=== PATIENT | female | born 1980 | race Caucasian/White ===

== ENCOUNTER → 2018-04-19 00:54 | Outpatient (CLI) | payer MEDICAID, SELFPAY ==
[2018-04-19 11:14] LABS: Hemoglobin A1C 5.8 % (4.5-6.2)
[2018-04-19 11:33] LABS: Iron 176 ug/dL (50-175)
[2018-04-19 12:13] LABS: ALT 41 U/L (12-78); AST 25 U/L (15-37); Albumin 3.9 g/dL (3.4-5.0); Alkaline Phosphatase 57 U/L (46-116); Anion Gap 9.7 mmol/L (3-11); BUN 15 mg/dL (7-18); CO2 25.3 mmol/L (21.0-32.0); CREATININE 0.86 mg/dL (0.55-1.02); Calcium 8.5 mg/dL (8.5-10.1); Chloride 105 mmol/L (98-107); Cholesterol 237 mg/dL (50-200); Glucose 89 mg/dL (70-100); HDL Cholesterol 37 mg/dL (40-60); Potassium 4.2 mmol/L (3.5-5.1); Sodium 140 mmol/L (136-145); TSH (W/Ref FT4) 1.55 uIU/mL (0.358-3.74); Total Protein 6.8 g/dL (6.4-8.2); Triglyceride 190 mg/dL (30-150); Vitamin B12 533 pg/mL (193-986)
[2018-04-19 12:33] LABS: Bilirubin, Total 0.4 mg/dL (0.2-1.0); LDL CHOLESTEROL 148 mg/dL (<100)
[2018-04-20 08:15] LABS: Ferritin 59 ng/mL (8-388)
[2018-04-20 08:26] LABS: Vitamin D 25 Total 27.9 ng/ml (30-100)
== END ==
PROVIDERS: PCP Family Medicine; Visit Provider Family Medicine
DX: E55.9 Vitamin D deficiency, unspecified (principal); R20.2 Paresthesia of skin; E83.19 Other disorders of iron metabolism; Z00.00 Encounter for general adult medical examination without abnormal findings
CPT/HCPCS: 36415; 80053; 80061; 82306; 83721; 82607; 82728; 83036; 83540; 84443

== ENCOUNTER 2019-03-30 01:07 | Outpatient (CLI) | payer MEDICAID, SELFPAY ==
--- NOTE | 2019-03-30 06:54 | DI.CT_ITS ---
SYMPTOM/DIAGNOSIS: ? HERNIA, ABD PAIN ABOVE AND TO THE LEFT OF UMBILICUS,R10.[address]: CT scan of the abdomen and pelvis was performed following intravenous and oral contrast administration. There are no priors for comparison. The lung bases are clear. The liver is normal in size. There is a 1 cm., round, hypodense lesion in the left lobe of the liver. There is a 1 cm. hypodense lesion seen in the posterior segment of the right lobe of the liver (series 6, images 267 and 357). The patient is status post cholecystectomy. No biliary ductal dilatation is present. The pancreas, spleen, adrenal glands, kidneys, ureters and bladder are unremarkable. The reproductive organs are unremarkable. The abdominal aorta is of normal caliber. No significant abdominal or pelvic adenopathy, ascites or pneumoperitoneum is present. The bowel shows no evidence of obstruction or inflammation. There is a normal appendix visualized. The lumbar spine shows mild degenerative change. 2 cm. above the umbilicus there are two small defects in the anterior abdominal wall in the midline. They contain fat. No evidence of bowel is seen. No soft tissue mass is appreciated. These are most suggestive of small supraumbilical fat containing hernias. No abdominal wall mass or abnormal enhancement is seen. IMPRESSION: Two small supraumbilical midline, fat containing abdominal wall hernias. Two 1 cm. hypodense lesions seen in the liver. These areas should be further evaluated. Abdominal ultrasound or pre and post contrast CT scan of the abdomen should be considered for further evaluation.
[2019-03-30] MEDS: Omnipaque 350 MG/ML 50 ML BTL IJ (07:20)
[2019-03-30] MEDS: Omnipaque 350 MG/ML 100 ML BTL IJ (08:44)
== END 2019-03-30 01:27 ==
PROVIDERS: PCP Family Medicine; Visit Provider Surgery
DX: K43.9 Ventral hernia without obstruction or gangrene; K76.89 Other specified diseases of liver; R10.33 Periumbilical pain; Z90.49 Acquired absence of other specified parts of digestive tract
CPT/HCPCS: 74177; J3490; Q9967

== ENCOUNTER 2019-04-05 00:37 | Outpatient (CLI) | payer MEDICAID, SELFPAY ==
--- NOTE | 2019-04-05 08:14 | DI.US_ITS ---
SYMPTOM/DIAGNOSIS: HYPODENSE LESION OF LIVER X 2, FOUND ON CT SCAN. ABD PAIN R10.9, R16.0 ABDOMINAL ULTRASOUND: The aorta and vena cava appear normal. The liver has a maximal diameter of 17.5 cm. In the left hepatic lobe there is a 1.2 x 1.1 x 0.9 cm region of increased echogenicity. In the right hepatic lobe there is a 1.5 x 1.3 x 1 cm region of increased echogenicity. These areas likely represent hemangiomata. Confirmation with multiphasic CT is suggested. The patient is status post cholecystectomy. There is no evidence of ductal dilatation. The pancreas is intact. The spleen has a maximal diameter of 9.9 cm. The left kidney is unremarkable measuring 11 cm. The right kidney is unremarkable measuring 12 cm. There is no evidence of free fluid in the abdomen. SUMMARY: Regions of increased echogenicity are noted in the liver which is somewhat enlarged and may represent hemangiomata. Further assessment with multiphasic CT is suggested.
== END 2019-04-05 00:57 ==
PROVIDERS: PCP Family Medicine; Visit Provider Physical Therapy Assistant
DX: R10.9 Unspecified abdominal pain (principal); R16.0 Hepatomegaly, not elsewhere classified; Z90.49 Acquired absence of other specified parts of digestive tract
CPT/HCPCS: 76700

== ENCOUNTER 2019-04-12 01:24 | Outpatient (CLI) | payer MEDICAID, SELFPAY ==
--- NOTE | 2019-04-12 08:26 | DI.CT_ITS ---
SYMPTOMS/DIAGNOSIS: LIVER MASS/CYST, ? HEMANGIOMA, R16.0 CT OF THE ABDOMEN: Comparison is made with [id number]. Pre contrast and post contrast images were performed during arterial, venous and at 5 minute delay. The previous ultrasound showed two hyperechoic liver lesions. The arterial phase images show peripheral enhancement. There is further lesion filling on the venous phase images. The lesions are not visible on the 5 minute delayed images. The enhancement pattern is consistent with hemangiomas. The patient is again noted to be status post cholecystectomy. There is no biliary dilatation. The pancreas, spleen, adrenals and kidneys as visualized portions of the bowel are unremarkable. IMPRESSION: Two small liver lesions, one in the left and the other in the inferior right lobe of the liver with ultrasound and CT findings consistent with hemangiomas.
[2019-04-12] MEDS: Omnipaque 350 MG/ML 100 ML BTL IV (09:55)
== END 2019-04-12 01:44 ==
PROVIDERS: PCP Family Medicine; Visit Provider Surgery
DX: R16.0 Hepatomegaly, not elsewhere classified (principal); R93.2 Abnormal findings on diagnostic imaging of liver and biliary tract; D18.03 Hemangioma of intra-abdominal structures
CPT/HCPCS: 74170; J3490

== ENCOUNTER 2019-05-07 01:53 | Outpatient (CLI) | payer MEDICAID, SELFPAY ==
[2019-05-07 12:08] LABS: HCT 41.4 % (36.0-46.0); HGB 13.6 g/dL (12.0-15.5); Mean Corp. HGB Concentration 32.9 g/dL (32.0-36.0); Mean Corpuscular Hemoglobin 30.8 pg (27.0-33.0); Mean Corpuscular Volume 93.7 fL (80-95); Mean Platelet Volume 10.5 fL (8.0-11.0); Platelet Count 347 x1000/uL (130-400); RBC 4.42 m/cumm (4.00-5.20); RBC Distribution Width 12.3 % (11.7-14.6); White Blood Cell Count 9.67 k/cumm (4.4-10.8)
[2019-05-07 12:27] LABS: Ferritin 58 ng/mL (8-388)
[2019-05-07 12:46] LABS: Iron 102 ug/dL (50-175)
[2019-05-07 15:49] LABS: Vitamin D 25 Total 29.8 ng/ml (30-100)
== END 2019-05-07 02:13 ==
PROVIDERS: PCP Family Medicine; Visit Provider Family Medicine
DX: E83.19 Other disorders of iron metabolism (principal); Z00.00 Encounter for general adult medical examination without abnormal findings; E55.9 Vitamin D deficiency, unspecified
CPT/HCPCS: 36415; 82306; 85027; 82728; 83540

== ENCOUNTER 2019-11-09 02:44 | Outpatient (CLI) | payer MEDICAID, SELFPAY ==
--- NOTE | 2019-11-09 | DI.RAD_ITS ---
EXAM: XR FOOT RT COMPLETE INDICATION: FOOT DEFORMITY, M21.969. COMPARISON: No exams were available for comparison TECHNIQUE: 2D digital imaging was performed. FINDINGS: The plantar arch is well maintained. An Ossicle is seen adjacent to the navicular. No significant d egenerative changes. IMPRESSION: Negative right foot. DATA REPOSITORY: RADIATION DOSE DELIVERED:
--- NOTE | 2019-11-09 | DI.RAD_ITS ---
EXAM: XR FOOT LT COMPLETE INDICATION: FOOT DEFORMITY, M21.969. COMPARISON: No exams were available for comparison TECHNIQUE: 2D digital imaging was performed. FINDINGS: The plantar arch is well maintained. There are 2 ossicles adjacent to the navicular. There are no s ignificant degenerative changes. IMPRESSION: Negative left foot. DATA REPOSITORY: RADIATION DOSE DELIVERED:
== END 2019-11-09 03:04 ==
PROVIDERS: PCP Family Medicine; Visit Provider Podiatrist Foot & Ankle Surgery
DX: Q79.8 Other congenital malformations of musculoskeletal system (principal)
CPT/HCPCS: 73630

== ENCOUNTER 2020-05-22 04:00 | Outpatient (CLI) | payer MEDICAID, SELFPAY ==
[2020-05-22 10:04] LABS: HGB 13.3 g/dL (11.2-15.7); MCH 31.4 pg (27.0-33.0); MCHC 34.1 % (32.0-36.0); Platelet Count 330 10^3/uL (130-400); RBC 4.24 10^6/uL (3.93-5.22); RDW 12.3 % (11.7-14.6); RDW-SD 41.5 fL; WBC 7.26 10^3/uL (4.4-10.8)
[2020-05-22 10:18] LABS: Hemoglobin A1C 5.3 % (<5.7)
[2020-05-22 10:43] LABS: Iron 93 ug/dL (50-170)
[2020-05-22 11:11] LABS: Ferritin 83 ng/mL (8-252); TSH (W/Ref FT4) 1.24 uIU/mL (0.36-3.74); Vitamin B12 512 pg/mL (193-986)
[2020-05-22 13:09] LABS: Vitamin D 25 Total 37.3 ng/ml (30-100)
== END 2020-05-22 04:20 ==
PROVIDERS: PCP Family Medicine; Visit Provider Family Medicine
DX: E83.19 Other disorders of iron metabolism (principal); E55.9 Vitamin D deficiency, unspecified; G47.30 Sleep apnea, unspecified; R53.83 Other fatigue; E11.9 Type 2 diabetes mellitus without complications
CPT/HCPCS: 36415; 82306; 85027; 82607; 82728; 83036; 83540; 84443

== ENCOUNTER 2021-05-21 10:50 | Outpatient (REF) | payer MEDICAID, SELFPAY ==
--- NOTE | 2021-05-21 09:30 | PAPFT_PTH ---
PATIENT: Neeru Parrish LOC: PATTI U#:[id number] AGE/SX: 41/F ROOM: RE05/21/[address]: Nani Marin MD, DC : 1980 BED: DIS: 05/21/2021 SPEC #: [id number] RECD: 05/21/21 13:13 STATUS: CHELO RELinda #: [id number] IVETH: 05/21/21 09:[address]: Nani Marin DEPT: [facility] Cytology RECD BY: Aretha Murray Tissues: 1 - CX/ENDOCX FOR PAP SMEARS Procedures: PAP THIN PREP/UVM Screening HPV DNA PROBE Comments: [id number]
== END 2021-05-21 10:51 | disposition home or self-care (01) ==
LOC: LBN 10:50
PROVIDERS: PCP Family Medicine; Visit Provider Family Medicine
DX: Z12.4 Encounter for screening for malignant neoplasm of cervix (principal); Z11.51 Encounter for screening for human papillomavirus (HPV); Z01.419 Encounter for gynecological examination (general) (routine) without abnormal findings
CPT/HCPCS: 88142; 87624

== ENCOUNTER 2021-08-26 02:31 | Outpatient (CLI) | payer MEDICAID, SELFPAY ==
[2021-08-26 08:27] LABS: ALT 36 U/L (14-59); AST 20 U/L (15-37); Albumin 3.9 g/dL (3.4-5.0); Alkaline Phosphatase 53 U/L (46-116); BUN 17 mg/dL (7-18); Bilirubin, Total 0.4 mg/dL (0.2-1.0); Calculated LDL 176 mg/dL (<100); Chloride 101 mmol/L (98-107); Cholesterol 276 mg/dL (<200); Glucose 99 mg/dL (74-106); HDL Cholesterol 34 mg/dL (40-60); Potassium 3.7 mmol/L (3.5-5.1); Sodium 139 mmol/L (136-145); Total Protein 7.2 g/dL (6.4-8.2); Triglyceride 330 mg/dL (<150)
== END 2021-08-26 02:32 | disposition home or self-care (01) ==
LOC: LBO 02:31
PROVIDERS: PCP Family Medicine; Visit Provider Family Medicine
DX: I10 Essential (primary) hypertension (principal)
CPT/HCPCS: 36415; 80053; 80061

== ENCOUNTER → 2022-04-30 00:30 | Outpatient (CLI) | payer MEDICAID, SELFPAY ==
--- NOTE | 2022-04-30 12:48 | DI.MAMMO_ITS ---
Exam(s) MAMMO SCREENING EXAM: MAMMO SCREENING CLINICAL HISTORY: screening,z12.39 TECHNIQUE: Mammograms were interpreted according to the usual protocol including computer analysis w [employer] CAD system, tomosynthesis and C-view imaging. COMPARISON: 2016 FINDINGS: The breasts are composed of scattered fibroglandular densities, Breast Density category B. No suspicious masses or suspicious microcalcifications are seen. No skin thickening or abnormal axillary lymph nodes are seen. There has been no significant change from prior exams. IMPRESSION: BI-RADS Category 1, Negative mammogram Yearly screening mammography is recommended. Breast Density - Category B, scattered fibroglandular densities. A negative radiographic report should not delay biopsy if a dominant or clinically suspicious mass is present. Up to ten percent of cancers are not identified on mammography. A negative report may reinforce clinical impression. Adenosis and dense breasts may obscure an underlying neoplasm. False positive reports average 6 to 10%. Patient will receive a letter notifying them of these results.
== END ==
PROVIDERS: PCP Family Medicine; Visit Provider Family Medicine
DX: Z12.31 Encounter for screening mammogram for malignant neoplasm of breast (principal)
CPT/HCPCS: 77063; 77067

== ENCOUNTER 2022-05-07 01:01 | Outpatient (CLI) | payer MEDICAID, SELFPAY ==
[2022-05-07 12:56] LABS: ALT 31 U/L (14-59); AST 27 U/L (15-37); Albumin 3.9 g/dL (3.4-5.0); Alkaline Phosphatase 47 U/L (46-116); Anion Gap 10.4 mmol/L (3-11); BUN 18 mg/dL (7-18); Bilirubin, Total 0.3 mg/dL (0.2-1.0); CO2 26.6 mmol/L (21.0-32.0); Calcium 9.1 mg/dL (8.5-10.1); Chloride 103 mmol/L (98-107); Glucose 99 mg/dL (74-106); Potassium 4.4 mmol/L (3.5-5.1); Sodium 140 mmol/L (136-145); Total Protein 7.5 g/dL (6.4-8.2)
== END 2022-05-07 01:02 | disposition home or self-care (01) ==
LOC: LOS 01:01
PROVIDERS: PCP Family Medicine; Visit Provider Family Medicine
DX: I10 Essential (primary) hypertension (principal)
CPT/HCPCS: 36415; 80053

== ENCOUNTER → 2022-05-13 00:44 | Outpatient (CLI) | payer MEDICAID, SELFPAY ==
--- NOTE | 2022-05-13 11:37 | DI.RAD_ITS ---
Exam(s) XR HIP RT COMPLETE AP PELVIS EXAM: XR HIP RT COMPLETE AP PELVIS CLINICAL HISTORY: r hip and LBP, leg pain,M25.551 TECHNIQUE: COMPARISON: No exams were available for comparison FINDINGS: Two views were obtained. There appear to be slight degenerative changes of the SI joints bilaterally . Cartilaginous joint spaces of the hips appear well maintained. No bony or soft tissue abnormality seen. IMPRESSION: RADIATION DOSE DELIVERED: Total DLP
--- NOTE | 2022-05-13 11:37 | DI.RAD_ITS ---
Exam(s) XR LUMBAR SPINE COMPLETE EXAM: XR LUMBAR SPINE COMPLETE CLINICAL HISTORY: right lbp and sciatica,LEG PAIN, M79.604,M54.50 TECHNIQUE: COMPARISON: No exams were available for comparison FINDINGS: Six views were obtained. The intervertebral disc spaces are well maintained. No evidence of fractur e or dislocation. No spondylolysis or spondylolisthesis. Minimal hypertrophic facet changes noted i n lower lumbar spine. IMPRESSION: Minimal facet degenerative changes. No other significant findings. RADIATION DOSE DELIVERED: Total DLP
== END ==
PROVIDERS: PCP Family Medicine; Visit Provider Family Medicine
DX: M54.41 Lumbago with sciatica, right side (principal); M79.604 Pain in right leg; M47.26 Other spondylosis with radiculopathy, lumbar region; M25.551 Pain in right hip; M53.3 Sacrococcygeal disorders, not elsewhere classified
CPT/HCPCS: 72110; 73502

== ENCOUNTER 2022-11-18 03:35 | Outpatient (CLI) | payer MEDICAID, SELFPAY ==
[2022-11-18 10:11] LABS: HCT 41.6 % (36.0-46.0); MCHC 33.7 % (32.0-36.0); MCV 95 fL (80-95); MPV 9.7 fL (8.0-11.0); Platelet Count 386 10^3/uL (130-400); RBC 4.38 10^6/uL (3.93-5.22); RDW 12.1 % (11.7-14.6); RDW-SD 41.9 fL; WBC 12.18 10^3/uL (4.4-10.8)
[2022-11-18 11:00] LABS: Iron 103 ug/dL (50-170)
[2022-11-18 11:04] LABS: TSH (W/Ref FT4) 1.67 uIU/mL (0.36-3.74)
== END 2022-11-18 03:36 | disposition home or self-care (01) ==
PROVIDERS: PCP Family Medicine; Visit Provider Family Medicine
DX: I10 Essential (primary) hypertension (principal); R53.83 Other fatigue; N93.8 Other specified abnormal uterine and vaginal bleeding; Z00.00 Encounter for general adult medical examination without abnormal findings
CPT/HCPCS: 36415; 85027; 83540; 84443

== ENCOUNTER 2022-12-10 08:59 | Outpatient (CLI) | payer MEDICAID, SELFPAY | END 2022-12-10 09:00 | disposition home or self-care (01) | PROVIDERS: PCP Family Medicine; Visit Provider Family Medicine | DX: R00.2 Palpitations (principal) | CPT/HCPCS: 93246 ==

== ENCOUNTER 2022-12-29 16:14 | Outpatient (CLI) | payer MEDICAID, SELFPAY ==
--- NOTE | 2022-12-29 16:00 | RT.EKG_ITS ---
APPROVED REPORT Exam: Resting ECG Reason for Exam: chest discomfort Patient Location: O HR:77 bpm ECG Measurements Heart Rate 77 AXIS OH 154 P 31 QRSd 79 QRS 8 QT 406 T 15 QTc 460 Conclusion Sinus rhythm...normal P axis, V-rate 50- 99 Poor R wave progression
== END 2022-12-29 16:15 | disposition home or self-care (01) ==
LOC: DI.CM 16:15
PROVIDERS: PCP Family Medicine; Visit Provider Family Medicine
DX: R07.9 Chest pain, unspecified (principal)
CPT/HCPCS: 93010

== ENCOUNTER 2022-12-31 07:58 | Outpatient (CLI) | payer MEDICAID, SELFPAY ==
--- NOTE | 2022-12-31 08:23 | W.CARDEVENT ---
Date of service: 12/31/22 Time of Service: 08:23 Cardiac Event Recorder Referring Provider:: Nani Marin Indications:: Palpitations Cardiac Event Note: This is a 14-day cardiac event monitor ordered for palpitations Rhythm throughout was sinus with an average heart rate of 82. Minimum was 51, maximum 155 There were very rare isolated atrial and ventricular ectopic beat There was no atrial fibrillation, no SVT, no high-grade AV block, no pauses greater than 3 seconds Symptoms were reported.. These corresponded to sinus rhythm and sinus tachycardia but no dysrhythmia
== END 2022-12-31 07:59 | disposition home or self-care (01) ==
LOC: CARDOPNVT 07:58
PROVIDERS: PCP Family Medicine; Visit Provider Internal Medicine Cardiovascular Disease
DX: R00.2 Palpitations (principal); R00.0 Tachycardia, unspecified

== ENCOUNTER 2023-01-04 02:47 | Outpatient (CLI) | payer MEDICAID, SELFPAY ==
[2023-01-04 12:36] LABS: ALT 40 U/L (14-59); AST 25 U/L (15-37); Albumin 3.8 g/dL (3.4-5.0); Alkaline Phosphatase 52 U/L (46-116); Anion Gap 7.4 mmol/L (3-11); BUN 16 mg/dL (7-18); Bilirubin, Total 0.4 mg/dL (0.2-1.0); CO2 26.6 mmol/L (21.0-32.0); CREATININE 1.1 mg/dL (0.55-1.02); Calcium 9.3 mg/dL (8.5-10.1); Chloride 103 mmol/L (98-107); Estimated GFR 64.34 (mL/min/1.73m2); Glucose 99 mg/dL (74-106); Potassium 3.8 mmol/L (3.5-5.1); Sodium 137 mmol/L (136-145); Total Protein 7.3 g/dL (6.4-8.2)
[2023-01-04 12:50] LABS: Calculated LDL 197 mg/dL (<100); Cholesterol 298 mg/dL (<200); HDL Cholesterol 40 mg/dL (40-60); Triglyceride 307 mg/dL (<150)
== END 2023-01-04 02:48 | disposition home or self-care (01) ==
LOC: LOS 02:47
PROVIDERS: PCP Family Medicine; Visit Provider Family Medicine
DX: E78.2 Mixed hyperlipidemia (principal); I10 Essential (primary) hypertension; R07.89 Other chest pain
CPT/HCPCS: 36415; 80053; 80061

== ENCOUNTER 2023-01-11 01:23 | Outpatient (CLI) | payer MEDICAID, SELFPAY ==
--- NOTE | 2023-01-11 08:15 | DI.US_ITS ---
APPROVED REPORT Exam: Exercise Treadmill Patient Location: Out-Patient Room/Bed: Stress Nurse: Jhonny Ordoñez RN Ordering Provider:GEOVANNA ELISE MD, Contact Number: BMI: 36.94 Baseline Rhythm: Sinus Rhythm Indications: Exertional chest pain, HTN, Mixed HLD. Medical History Medical History: HTN, Prediabetes, HLD, Palpitations Sleep apnea, anxiety. Cardiac Medications: HCTZ, Aldactaone. Allergies: Hydrocodone. Cardiac Risk Factors: HTN, Hyperlipidemia, Obesity, Prediabetsic. Previous Cardiac Procedures: none Pretest Chest Pain Characteristics: No chest pain Exercise History: Physically active Physical Disabilities: none Lung Sounds: Clear to auscultation Heart Sounds: Regular Stress Test Details Test: Exercise stress testing was performed using a Salvatore protocol. Rest Stress HR Resting HR Supine: 78 bpm Max Heart Rate (APMHR): 178 bpm Resting HR Standin bpm Target HR (85% APMHR): 151 bpm Max HR Achieved: 160 bpm % of APMHR: 90 Recovery HR: 98 bpm HR response to stress: Normal HR response to stress BP Resting BP Supine: 132/82 mmHg Resting BP Standin/90 mmHg Max BP: 182/82 mmHg Recovery BP: 158/88 mmHg BP response to stress: Normal blood pressure response to stress. ECG Resting ECG: Sinus Rhythm Ectopy: none Stress ECG: Sinus Tachycardia ST Change: No significant ST segment changes noted Arrhythmia: none Recovery ECG: Sinus Rhythm Recovery ST Change: No significant ST segment changes noted Recovery Arrhythmia: none Clinical Reason for Termination: Fatigue Stress Symptoms: General Fatigue Exercise duration: 09 min22 sec Highest Stage Reached: Stage 4: 4.2 mph at 16% grade. Exercise capacity: 10.74 METs Angina Score: None Quinteros Treadmill Score: 8.1 Rate Pressure Product: 18776 Stress ECG Conclusion 1. Resting electrocardiogram was within normal limits 2. Patient exercised on the Salvatore protocol and completed a workload of 10.74 METS 3. Normal heart rate and blood pressure response to exercise. The patient achieved 90% of predicted heart rate for age 4. There was no electrocardiographic or echocardiographic evidence of myocardial ischemia 5. There were no dysrhythmias Quinteros Treadmill Score is 8.1 which is Low risk. Stress Test Summary STAGE Time (mins) Speed (mph) Grade (%) HR BP SpO2 SYMPTOMS METS Supine 78 132/82 98 none Standing 78 150/90 98 none 1 3 1.7 10 117 152/78 98 none 4.5 2 6 2.5 12 135 160/78 97 7 3 9 3.4 14 156 172/90 97 10 4 12 4.2 16 158 97 13 1 min recovery 138 180/92 3 min recovery 105 182/82 6 min recovery 98 158/88
== END 2023-01-11 01:43 ==
LOC: DI 01:23
PROVIDERS: PCP Family Medicine; Visit Provider Family Medicine
DX: E78.2 Mixed hyperlipidemia (principal); I10 Essential (primary) hypertension; Z87.898 Personal history of other specified conditions
CPT/HCPCS: 93350; 93017

== ENCOUNTER 2023-03-17 04:11 | Outpatient (CLI) | payer MEDICAID, SELFPAY ==
[2023-03-17 11:10] LABS: MCH 32.3 pg (27.0-33.0); MCHC 34.1 % (32.0-36.0); MCV 95 fL (80-95); MPV 10.1 fL (8.0-11.0); Platelet Count 341 10^3/uL (130-400); RBC 4.34 10^6/uL (3.93-5.22); RDW 11.9 % (11.7-14.6); RDW-SD 41.3 fL; WBC 9.47 10^3/uL (4.4-10.8)
[2023-03-17 11:24] LABS: Hemoglobin A1C 5.6 % (<5.7)
[2023-03-17 11:42] LABS: ALT 46 U/L (14-59); AST 22 U/L (15-37); Albumin 4.1 g/dL (3.4-5.0); Alkaline Phosphatase 57 U/L (46-116); Anion Gap 10.6 mmol/L (3-11); BUN 19 mg/dL (7-18); Bilirubin, Total 0.4 mg/dL (0.2-1.0); CO2 24.4 mmol/L (21.0-32.0); Calcium 9.4 mg/dL (8.5-10.1); Calculated LDL 119 mg/dL (<100); Chloride 103 mmol/L (98-107); Cholesterol 213 mg/dL (<200); Estimated GFR 71.69 (mL/min/1.73m2); Glucose 103 mg/dL (74-106); HDL Cholesterol 38 mg/dL (40-60); Potassium 4.1 mmol/L (3.5-5.1); Sodium 138 mmol/L (136-145); TSH (W/Ref FT4) 1.33 uIU/mL (0.36-3.74); Total Protein 7.6 g/dL (6.4-8.2); Triglyceride 282 mg/dL (<150); Vitamin B12 444 pg/mL (193-986)
== END 2023-03-17 04:12 | disposition home or self-care (01) ==
LOC: LOS 04:11
PROVIDERS: PCP Family Medicine; Visit Provider Family Medicine
DX: Z00.00 Encounter for general adult medical examination without abnormal findings (principal); E11.9 Type 2 diabetes mellitus without complications; G56.03 Carpal tunnel syndrome, bilateral upper limbs
CPT/HCPCS: 36415; 80053; 80061; 85027; 82607; 83036; 84443

== ENCOUNTER 2023-10-19 12:44 | Day surgery (SDC) | payer MEDICAID, SELFPAY ==
[2023-10-19 12:54] VITALS: BP 140/92; PULSE 72; RESP 18; TEMP 36.4; O2SAT 99
[2023-10-19] MEDS: Lactated Ringers 1,000 ML 80 ML IV (13:20)
--- NOTE | 2023-10-19 13:22 | W.ANESPRE ---
General Info Date of Service Date Performed: 10/19/23 Height: 5 ft 2 in Weight: 92.1 kg Body Mass Index (BMI): 37.1 Surgical Procedure: Operation Date: 10/19/23 14:40 Proposed Procedure Side Surgeon p Wrist ECTR Right Trev Gusman MD Meds Allergies and Home Medications Allergies Allergy/AdvReac Type Severity Reaction Status Date / Time hydrocodone AdvReac Intermediate Causes an Verified 10/19/23 12:52 itch Home Medication Medication Instructions Recorded cholecalciferol (vitamin D3) 50 50 mcg PO DAILY 05/27/20 mcg (2,000 unit) capsule atorvastatin 10 mg tablet 10 mg PO QHS #90 tabs 01/10/23 spironolactone 50 mg tablet 50 mg PO BID #180 tabs 03/15/23 bupropion HCl 150 mg 24 hr tablet, 150 mg PO QAM #90 tabs 04/28/23 extended release escitalopram oxalate 5 mg tablet 5 mg PO DAILY #90 tabs 08/01/23 fluticasone propionate 50 2 spray intranasal DAILY PRN nasal 08/01/23 mcg/actuation nasal congestion #16 grams spray,suspension Current Visit Medications: Current Medications Generic Name Dose Route Start Last Admin Trade Name Freq PRN Reason Stop Dose Admin Ringer's Solution 1,000 mls @ 80 mls/hr 10/19/23 06:00 10/19/23 13:20 IV 11/17/23 23:59 80 mls/hr INFUSION ADI Administration Cefazolin Sodium/Dextrose 2 gm in 50 mls @ 100 mls/hr 10/19/23 06:00 Ancef Duplex IVPB 11/17/23 23:59 PREOP ADI IV Miscellaneous Supplies 1 each 10/19/23 06:00 Iv Access IV 11/17/23 23:59 DIRECTED ADI Sodium Chloride 0 ml 10/19/23 06:00 Normal Saline Flush 10 Ml Syr IV 11/17/23 23:59 PRN PRN Sodium Chloride 0 ml 10/19/23 06:00 Normal Saline 10 Ml Vial IJ 11/17/23 23:59 DIRECTED PRN Sterile Water 0 ml 10/19/23 06:00 Water,Injection,Sterile 10 Ml Vial IJ 11/17/23 23:59 DIRECTED PRN PFSH Active Problems Active Problems: Problem Status Onset Code Bilateral carpal tunnel syndrome G56.03 Lateral epicondylitis of elbow M77.10 Hyperlipemia, mixed E78.2 Thoracic back pain M54.6 Hypertension I10 Snoring R06.83 Anxiety F41.9 Distal paresthesia 04/18/18 R20.2 Depressive disorder F32.9 Annual physical exam 03/01/16 Z00.00 Medical History Medical History Weight gain Wrist pain Palpitations Per pt. states anxiety related, had it worked up and stated nothing of concern came out of it Dizziness Lumbar pain with radiation down right leg Right hip pain COVID-19 11/02/21 Toe pain Abnormal auditory perception of both ears Chronic rhinitis Vertigo Managed Pre-diabetes Fatigue Sleep apnea pt. states no longer has this Post-nasal drainage Vitamin D deficiency Contact dermatitis Dysfunctional uterine bleeding Eczema Left-sided thoracic back pain (10/16/15) Rectal hemorrhage Patellofemoral arthralgia of right knee Mixed stress and urge urinary incontinence (04/18/18) Iron excess (04/19/18) Surgical History Surgical History Status post cholecystectomy Cholecystectomy (~2004) Tobacco Smoking/Tobacco Use Status: Never Passive smoking exposure: No Second hand exposure: No Alcohol Alcohol Intake: never Substance Use Substance use: Never Substance use type: does not use Vital Signs and Lab Results Vital Signs Most Recent Vital Signs in EMR: Most Recent Vital Signs Temp Pulse Resp BP Pulse Ox 36.4 C L 72 18 140/92 H 99 10/19/23 12:54 10/19/23 12:54 10/19/23 12:54 10/19/23 12:54 10/19/23 12:54 Point of Care Results Point of Care Results: POC- Test(urine) Negative 10/19/23 13:14 Lab Results Blood Type / Crossmatch: No Data to Display Complete Blood Count: No Data to Display Complete Metabolic Panel: No Data to Display Liver Function Panel: No Data to Display Coagulation Panel: No Data to Display Cardiac Panel: No Data to Display Arterial Blood Gas: No Data to Display Venous Blood Gas: No Data to Display Pancreas Panel: No Data to Display Thyroid Panel: No Data to Display Infectious Disease: No Data to Display Blood Cultures: No Data to Display Toxicology Panel: No Data to Display Panel: No Data to Display Imaging and Studies Imaging and Studies Study information below may be from another EMR and interpreted by another provider. Please see original notes in EMR for more complete details. EKG Summary: 01/09: sinus, poor r wave progression. Stress Test Summary: 01/09: ECG WNL, 10.74. Anesthesia Assessment and Plan Anesthesia History Personal History: PONV Family History: No Family History of Anesthesia Complications Exercise Tolerance Exercise Tolerance: Metabolic Equivalents>4 Cardiac & Pulmonary Exam Cardiac Exam: Normal S1/S2 Heart Sounds Pulmonary Exam: Clear Bilateral Breath Sounds Implantable Cardiac Device Does patient have a Pacemaker or an ICD?: No Airway Exam Known Difficult Airway: No Mallampati Class: 3 Mouth Opening: Normal (> 3cm) Thyromental Distance: Greater than 3 cm Neck Range of Motion: Full ROM Neck Circumference: Thick Teeth Condition: Normal Dentition ASA Classification ASA Score: ASA 2 Emergency Case?: No NPO Status NPO Status: NPO Clears >2 hours, Solids >8 hours Status Status: Negative HCG Anesthesia Plan Resuscitation Status: Full Code Anesthesia Technique: General Anesthesia Airway Planned: Natural Airway Monitors Used: Standard Monitors Preoperative Comments:: 43 yo female for ECTR. Sig PMHx: HTN, MARIA DEL CARMEN, vertigo, depression. never smoker.
[2023-10-19 13:26] VITALS: BMI 37.1
--- NOTE | 2023-10-19 14:24 | HPE_ITS ---
Assessment and Plan Assessment and plan (1) Bilateral carpal tunnel syndrome: Status: Acute Assessment and plan: Neeru is a 43-year-old female who is here today for right carpal tunnel release. She will have left carpal tunnel release next week. Please see the previous office note for complete detailed history. She has no new medical symptoms. I discussed the technical details of carpal tunnel release and that I perform an endoscopic release, but would make a larger, open, incision if necessary for visualization. I discussed the risks of the procedure to include, but not limited to, bleeding, infection, palmar pain, stiffness, damage to nerves, damage to vessels, damage to tendons, weakness, recurrence, and incomplete release. Given these risks, Neeru desires to proceed. History of Present Illness Narrative: Neeru is a 43-year-old female who presents today for her bilateral carpal tunnel syndrome. She is here today for the right carpal tunnel release. She is planned for the left carpal tunnel next week. She has had no change in her symptoms. No chest pain or shortness of breath. No recent illness. Review of Systems All systems reviewed & are unremarkable except as noted in HPI and below PFSH All Active Problems Bilateral carpal tunnel syndrome (Acute) Lateral epicondylitis of elbow (Acute) Hyperlipemia, mixed (Acute) Thoracic back pain (Acute) Hypertension (Chronic) Snoring (Acute) Anxiety (Acute) Distal paresthesia (Chronic 04/18/18) Depressive disorder (Chronic) Including post- depression Annual physical exam (Acute 03/01/16) Medical History Weight gain Wrist pain Palpitations Per pt. states anxiety related, had it worked up and stated nothing of concern came out of it Dizziness Lumbar pain with radiation down right leg Right hip pain COVID-19 11/02/21 Toe pain Abnormal auditory perception of both ears Chronic rhinitis Vertigo Managed Pre-diabetes Fatigue Sleep apnea pt. states no longer has this Post-nasal drainage Vitamin D deficiency Contact dermatitis Dysfunctional uterine bleeding Eczema Left-sided thoracic back pain (10/16/15) Rectal hemorrhage Patellofemoral arthralgia of right knee Mixed stress and urge urinary incontinence (04/18/18) Iron excess (04/19/18) Surgical History Status post cholecystectomy Cholecystectomy (~2004) Family History Mother Essential hypertension Father Essential hypertension Sister No problems noted. Maternal Grandfather No problems noted. Paternal Grandfather , 75 Essential hypertension Heart disease Maternal Grandmother Stroke TIA Paternal Grandmother , 81 Essential hypertension Hyperlipidemia Stroke TIA Asthma Son No problems noted. Son No problems noted. Paternal Family History Choroideremia MALES Eye disease FEMALES CARRY-MALES HAVE IT Social History Smoking/Tobacco Use Status: Never Second Hand Exposure: No Smoking risk assessment performed?: Yes Alcohol Intake: never Drug use: Never Substance use type: does not use Caregiver/Support person: No Household members: spouse and children Housing: house Communication Needs: None Do you need help understanding health information?: Never Pets and animals: Yes Pets and animals: dog(s) Sexually active: Yes Do you think of yourself as: straight/heterosexual Current gender identity: female What is your relationship status?: How often do you talk on the phone with friends or family?: once per week How often do you get together with friends or relatives?: once per week How often do you attend rastafari or zoroastrianism services?: 4 or more times per year Do you belong to any clubs or organized social groups?: no Panel score (0-1 are the most socially isolated patients): 2 What type of physical activity do you participate in: walking, aerobic, bicycling and resistance training Duration: 15-30 minutes/day Frequency: 3-4 times per week Rosario/Denominational: Jew Special rosario needs: No Seatbelt use: always Helmet use: Yes Helmet use: sometimes Drive intox or ride w/intox pack train driver: No Do you feel safe in your relationship?: Yes Victim of physical abuse: No Meds Allergies and Home Medications Allergies Allergy/AdvReac Type Severity Reaction Status Date / Time hydrocodone AdvReac Intermediate Causes an Verified 10/19/23 12:52 itch Home Medications Medication Instructions Recorded Confirmed Type cholecalciferol (vitamin D3) 50 50 mcg PO DAILY 05/27/20 10/19/23 History mcg (2,000 unit) capsule atorvastatin 10 mg tablet 10 mg PO QHS #90 tabs 01/10/23 10/19/23 Rx spironolactone 50 mg tablet 50 mg PO BID #180 tabs 03/15/23 10/19/23 Rx bupropion HCl 150 mg 24 hr tablet, 150 mg PO QAM #90 tabs 04/28/23 10/19/23 Rx extended release escitalopram oxalate 5 mg tablet 5 mg PO DAILY #90 tabs 08/01/23 10/19/23 Rx fluticasone propionate 50 2 spray intranasal DAILY PRN nasal 08/01/23 10/19/23 Rx mcg/actuation nasal congestion #16 grams spray,suspension Exam Resp Effort & Inspection: normal respiratory effort Auscultation: clear to auscultation bilaterally Cardio Rate: regular rate Rhythm: regular rhythm Results Last Vital Signs Temp 36.4 C L 10/19/23 12:54 Pulse 72 10/19/23 12:54 Resp 18 10/19/23 12:54 BP 140/92 H 10/19/23 12:54 Pulse Ox 99 10/19/23 12:54
[2023-10-19] MEDS: ceFAZolin 2 GM/50 ML BAG IVPB (14:54)
[2023-10-19] MEDS: Lidocaine 1% Multi-Dose W/EPI 1/100,000 50 ML VIAL (14:59)
--- NOTE | 2023-10-19 14:59 | W.PM.DSUDISC ---
Date of service: 10/19/23 Time of Service: 14:59 Discharge Plan Disposition Patient Disposition: Home Condition: Good Discharge Details Reason For Visit: R ECTR Attending Provider: Trev Gusman Primary Care Provider: Nani Marin Home Meds and New Rx's Prescriptions: New acetaminophen 500 mg tablet 1,000 mg PO TID Qty: 90 0RF ibuprofen 600 mg tablet 600 mg PO TID PRN (Reason: pain) Qty: 90 0RF Continued spironolactone 50 mg tablet 50 mg PO BID Qty: 180 4RF cholecalciferol (vitamin D3) 50 mcg (2,000 unit) capsule 50 mcg PO DAILY atorvastatin 10 mg tablet 10 mg PO QHS Qty: 90 3RF bupropion HCl 150 mg tablet extended release 24 hr 150 mg PO QAM Qty: 90 3RF escitalopram oxalate 5 mg tablet 5 mg PO DAILY Qty: 90 3RF fluticasone propionate 50 mcg/actuation spray,suspension 2 spray NADIYA DAILY PRN (Reason: nasal congestion) Qty: 16 8RF Rx Instructions: administer into each nostril Discharge Instructions Stand Alone Forms: Uzma Johnson Tunnel Release Referrals: Trev Gusman MD [ [facility] STAFF PHYSICIAN] - Activity:: Activity as Tolerated Remove Dressings/Wound Care:: 48 hours Shower/Bathe:: 48 hours Diet:: As Tolerated Discharge Orders Discharge Orders: Discharge Order (Routine); Ordered 10/19/23 Ordered By: Rivera Degroot DS: Diagnosis Discharge Diagnosis (1) Bilateral carpal tunnel syndrome: Status: Acute
[2023-10-19 15:10] VITALS: BP 130/81; PULSE 80; RESP 16; TEMP 36.1; O2SAT 97
--- NOTE | 2023-10-19 15:18 | W.ANESPOSTOP ---
Postoperative Evaluation Date, Time and Location Date Performed: 10/19/23 Time Performed: 15:12 Patient Location: Day Surgery Unit Vital Signs Most Recent Imported Vital Signs: Most Recent Vital Signs Temp Pulse Resp BP Pulse Ox 36.1 C L 80 16 130/81 97 10/19/23 15:10 10/19/23 15:10 10/19/23 15:10 10/19/23 15:10 10/19/23 15:10 Pain Score Most Recent Pain Score: Most Recent Pain Score Pain Level 0 10/19/23 15:10 Assessment Mental Status: Awake (Alert & Oriented to Patient Baseline) Airway and Respiratory Function: Patent airway with normal (patient baseline) respiratory exam Cardiovascular Function: Hemodynamically Stable Hydration Status: Adequately Hydrated Nausea & Vomiting: No Nausea or Vomiting Pain: Pain is tolerable per patient Peripheral Nerve Block: Patient did not receive a nerve block
[2023-10-19 15:25] VITALS: BP 144/98; PULSE 77; RESP 18; TEMP 36.4; O2SAT 94
--- NOTE | 2023-10-19 21:18 | ROE_ITS ---
Date of service: 10/19/23 Time of Service: 14:40 Operative Note Operative Note DATE OF PROCEDURE: 10/19/23 PRE-OP DIAGNOSIS: Right Carpal Tunnel Syndrome POST-OP DIAGNOSIS: same PROCEDURE: Right Endoscopic Carpal Tunnel Release SURGEON: Trev Gusman ANESTHESIA TYPE: General:No Airway Refer to Anesthesia Record ESTIMATED BLOOD LOSS: 0 PATHOLOGY: none sent TOURNIQUET TIME: 4 COMPLICATIONS: None Patient was transported to: same day Patient's condition: stable Indications: I have seen Neeru in clinic for symptoms of carpal tunnel syndrome. The numbness, tingling, and pain limited function. Clinical exam findings with nerve conduction tests confirmed the diagnosis of carpal tunnel syndrome. Nonoperative measures such as bracing, time, activity modifications had been tried but disability and pain persisted. I discussed carpal tunnel release with the patient. I reviewed the risks of the procedure to include, but not limited to, bleeding, infection, pain, stiffness, incomplete release, damage to nerves or vessels, persistent numbness, recurrence. Despite these risks, the patient elected to proceed. Findings: There was tightened carpal tunnel. This was dilated and released successfully with the endoscopic with increased space within the tunnel. The antebrachial fascia was released proximally freeing the median nerve at the wrist. Procedure Description: Neeru was greeted in the preoperative holding area where the correct side was identified and marked. The consent was reviewed with the patient and signed. The history and physical was updated. All questions were answered. Neeru was taken back to the operating room. The patient was placed into the supine position on the operating room table with the right arm on an arm board. A nonsterile tourniquet was placed high onto the arm. All bony prominences were well padded. Prophylactic antibiotics in the form of Cefazolin were administered. The right arm was then prepped with Chloraprep and draped in a standard fashion with stockinette and extremity drape. A timeout to confirm correct identity, side and site, procedure, allergies, anesthesia, and medical concerns was performed. The surgical site was marked in the volar wrist creases in line with the radial border of the fourth ray. This area was anesthetized with approximately 6cc of 1% Lidocaine. The limb was then exsanguinated with an Esmarch. The skin was incised with a 15 blade, approximately 1cm. The skin only was cut and the deeper tissue was dissected bluntly with a tenotomy scissor, avoiding passing nerve and venous structures. The fascia was penetrated and opened bluntly. A two-prong skin hook was placed under this proximal fascial edge. A series of hamate finders were used to identify and dilate the carpal tunnel. Synovial elevator was used to free synovial attachments to the underside of the transverse carpal ligament. My thumb was kept in the palm to kathy the distal extent of the carpal tunnel and correctly position the hand. The Microaire end oscope was inserted without difficulty and without resistance. Excellent visualization showed horizontally running fibers of the transverse carpal ligament (TCL). The distal extent of the TCL was visualized and the end of the scope palpated with the thumb. The blade was elevated and withdrawn from distal to proximal. The TCL was split into two flaps. The endoscope was reinserted to confirm complete release and any remnant ligament was incised. The scope was withdrawn and the proximal aspect of the carpal tunnel was grossly inspected and appeared release with the median nerve visible. The antebrachial fascia at the level of the wrist was then freed from the overlying skin and then the underlying median nerve with blunt dissection. This was transected longitudinally for about 3cm proximal to the wrist incision. The wound was then irrigated with easy flow of irrigant distally and proximally. The incision was closed with a single 4-0 Nylon suture. The wound was dressed with Xeroform, Gauze, Kerlix and Demetri. The tourniquet was deflated with the initial dressing and held with some pressure. Blood flow returned easily to all digits with capillary refill less than 2 seconds. The patient tolerated the procedure well and was returned to the Same Day Surgery area in a stable condition suffering no known complication.
== END 2023-10-19 15:49 | disposition home or self-care (01) ==
PROVIDERS: PCP Family Medicine; Visit Provider Student in an Organized Health Care Education/Training Program
PROC: 01N54ZZ Release Median Nerve, Percutaneous Endoscopic Approach (ICD-10-PCS; CPT 29848; principal; 2023-10-19 14:30)
DX: G56.03 Carpal tunnel syndrome, bilateral upper limbs (principal); I10 Essential (primary) hypertension; G47.33 Obstructive sleep apnea (adult) (pediatric)
CPT/HCPCS: 29848; 81025; J0690; J1100; J2001; J2004; J2405; J2704

== ENCOUNTER 2023-10-26 06:10 | Day surgery (SDC) | payer MEDICAID, SELFPAY ==
[2023-10-26 06:29] VITALS: BP 132/92; PULSE 79; RESP 16; TEMP 36.1; O2SAT 97
[2023-10-26] MEDS: Lactated Ringers 1,000 ML 80 ML IV (06:35)
--- NOTE | 2023-10-26 06:44 | ANES.PREOP_ITS ---
General Info Date of Service Date Performed: 10/26/23 Height: 5 ft 2 in Weight: 93.2 kg Body Mass Index (BMI): 37.5 Surgical Procedure: Operation Date: 10/26/23 07:40 Proposed Procedure Side Surgeon p Wrist ECTR Left Trev Gusman MD Meds Allergies and Home Medications Allergies Allergy/AdvReac Type Severity Reaction Status Date / Time hydrocodone AdvReac Intermediate Causes an Verified 10/26/23 06:34 itch Home Medication Medication Instructions Recorded cholecalciferol (vitamin D3) 50 50 mcg PO DAILY 05/27/20 mcg (2,000 unit) capsule atorvastatin 10 mg tablet 10 mg PO QHS #90 tabs 01/10/23 spironolactone 50 mg tablet 50 mg PO BID #180 tabs 03/15/23 bupropion HCl 150 mg 24 hr tablet, 150 mg PO QAM #90 tabs 04/28/23 extended release escitalopram oxalate 5 mg tablet 5 mg PO DAILY #90 tabs 08/01/23 fluticasone propionate 50 2 spray intranasal DAILY PRN nasal 08/01/23 mcg/actuation nasal congestion #16 grams spray,suspension acetaminophen 500 mg tablet 1,000 mg (2 x 500 mg) PO TID #90 10/19/23 tabs ibuprofen 600 mg tablet 600 mg PO TID PRN pain #90 tabs 10/19/23 furosemide 40 mg tablet mg 10/26/23 Current Visit Medications: Current Medications Generic Name Dose Route Start Last Admin Trade Name Freq PRN Reason Stop Dose Admin Ringer's Solution 1,000 mls @ 80 mls/hr 10/26/23 06:00 10/26/23 06:35 IV 11/24/23 23:59 80 mls/hr INFUSION ADI Administration Cefazolin Sodium/Dextrose 2 gm in 50 mls @ 100 mls/hr 10/26/23 06:00 Ancef Duplex IVPB 11/24/23 23:59 PREOP ADI IV Miscellaneous Supplies 1 each 10/26/23 06:00 Iv Access IV 11/24/23 23:59 DIRECTED ADI Sodium Chloride 0 ml 10/26/23 06:00 Normal Saline Flush 10 Ml Syr IV 11/24/23 23:59 PRN PRN Sodium Chloride 0 ml 10/26/23 06:00 Normal Saline 10 Ml Vial IJ 11/24/23 23:59 DIRECTED PRN Sterile Water 0 ml 10/26/23 06:00 Water,Injection,Sterile 10 Ml Vial IJ 11/24/23 23:59 DIRECTED PRN PFSH Active Problems Active Problems: Problem Status Onset Code Bilateral carpal tunnel syndrome G56.03 Lateral epicondylitis of elbow M77.10 Hyperlipemia, mixed E78.2 Thoracic back pain M54.6 Hypertension I10 Snoring R06.83 Anxiety F41.9 Distal paresthesia 04/18/18 R20.2 Depressive disorder F32.9 Annual physical exam 03/01/16 Z00.00 Medical History Medical History Weight gain Wrist pain Palpitations Per pt. states anxiety related, had it worked up and stated nothing of concern came out of it Dizziness Lumbar pain with radiation down right leg Right hip pain COVID-19 11/02/21 Toe pain Abnormal auditory perception of both ears Chronic rhinitis Vertigo Managed Pre-diabetes Fatigue Sleep apnea pt. states no longer has this Post-nasal drainage Vitamin D deficiency Contact dermatitis Dysfunctional uterine bleeding Eczema Left-sided thoracic back pain (10/16/15) Rectal hemorrhage Patellofemoral arthralgia of right knee Mixed stress and urge urinary incontinence (04/18/18) Iron excess (04/19/18) Surgical History Surgical History Status post cholecystectomy Cholecystectomy (~2004) Tobacco Smoking/Tobacco Use Status: Never Passive smoking exposure: No Second hand exposure: No Alcohol Alcohol Intake: never Substance Use Substance use: Never Substance use type: does not use Vital Signs and Lab Results Vital Signs Most Recent Vital Signs in EMR: Most Recent Vital Signs Temp Pulse Resp BP Pulse Ox 36.1 C L 79 16 132/92 H 97 10/26/23 06:29 10/26/23 06:29 10/26/23 06:29 10/26/23 06:29 10/26/23 06:29 Lab Results Blood Type / Crossmatch: No Data to Display Complete Blood Count: No Data to Display Complete Metabolic Panel: No Data to Display Liver Function Panel: No Data to Display Coagulation Panel: No Data to Display Cardiac Panel: No Data to Display Arterial Blood Gas: No Data to Display Venous Blood Gas: No Data to Display Pancreas Panel: No Data to Display Thyroid Panel: No Data to Display Infectious Disease: No Data to Display Blood Cultures: 2 No Data to Display Toxicology Panel: No Data to Display Panel: No Data to Display Imaging and Studies Imaging and Studies Study information below may be from another EMR and interpreted by another provider. Please see original notes in EMR for more complete details. EKG Summary: 01/09: sinus, poor r wave progression. Stress Test Summary: 01/09: ECG WNL, 10.74. Anesthesia Assessment and Plan Anesthesia History Personal History: PONV Family History: No Family History of Anesthesia Complications Exercise Tolerance Exercise Tolerance: Metabolic Equivalents>4 Pertinent Negatives Pertinent Negatives: No Symptoms of GERD Cardiac & Pulmonary Exam Cardiac Exam: Normal S1/S2 Heart Sounds Pulmonary Exam: Clear Bilateral Breath Sounds Implantable Cardiac Device Does patient have a Pacemaker or an ICD?: No Airway Exam Known Difficult Airway: No Mallampati Class: 3 Mouth Opening: Normal (> 3cm) Thyromental Distance: Greater than 3 cm Neck Range of Motion: Full ROM Neck Circumference: Thick Teeth Condition: Normal Dentition ASA Classification ASA Score: ASA 2 Emergency Case?: No NPO Status NPO Status: NPO Clears >2 hours, Solids >8 hours Status Status: Negative HCG Anesthesia Plan Resuscitation Status: Full Code Anesthesia Technique: General Anesthesia Airway Planned: Natural Airway Monitors Used: Standard Monitors
[2023-10-26 06:46] VITALS: BMI 37.5
--- NOTE | 2023-10-26 07:13 | PDOC.DSDIS_ITS ---
Date of service: 10/26/23 Time of Service: 07:13 Discharge Plan Disposition Patient Disposition: Home Condition: Good Discharge Details Reason For Visit: Left Carpal Tunnel Release Attending Provider: Trev Gusman Primary Care Provider: Nani Marin Home Meds and New Rx's Prescriptions: Continued spironolactone 50 mg tablet 50 mg PO BID Qty: 180 4RF cholecalciferol (vitamin D3) 50 mcg (2,000 unit) capsule 50 mcg PO DAILY atorvastatin 10 mg tablet 10 mg PO QHS Qty: 90 3RF bupropion HCl 150 mg tablet extended release 24 hr 150 mg PO QAM Qty: 90 3RF escitalopram oxalate 5 mg tablet 5 mg PO DAILY Qty: 90 3RF fluticasone propionate 50 mcg/actuation spray,suspension 2 spray NADIYA DAILY PRN (Reason: nasal congestion) Qty: 16 8RF Rx Instructions: administer into each nostril acetaminophen 500 mg tablet 1,000 mg PO TID Qty: 90 0RF ibuprofen 600 mg tablet 600 mg PO TID PRN (Reason: pain) Qty: 90 0RF furosemide 40 mg tablet Patient Comments: TAKE 1 TABLET BY MOUTH DAILY 10/26/23 06:45am: Pt reported (to Kyle JETT) that Dr. Marin instructed pt to take Furosemide for ankle swelling on 10/25/23. Pt took 20mg Furosemide at 13:40pm and 20mg at 18:40mg on 10/25/23. Discharge Instructions Stand Alone Forms: Anesthesia Discharge Inst., [facility] ([facility]) Referrals: Trev Gusman MD [ [facility] STAFF PHYSICIAN] - 11/04/23 8:00 am Remove Dressings/Wound Care:: 48 hours Shower/Bathe:: 48 hours Diet:: As Tolerated Discharge Orders Discharge Orders: Discharge Order (Routine); Ordered 10/26/23 Ordered By: Trev Gusman
[2023-10-26] MEDS: ceFAZolin 2 GM/50 ML BAG IVPB (07:32)
[2023-10-26] MEDS: Lidocaine 1% Multi-Dose W/EPI 1/100,000 50 ML VIAL (07:33)
--- NOTE | 2023-10-26 07:44 | NUR.NOTE ---
10/26/23 Bella Reyes RN performed pt intake for L ECTR surgery today. Pt's spouse (Benigno Parrish) in room. Pt spouse unnecessarily verbally confrontational to Kyle JETT when pt and SO informed that when pt is taken over to surgery, that SO will be asked to leave the Day Surgery Unit. SO reported that he was allowed to stay on unit last week when pt was having R ECTR surgery. Kyle JETT explained that relatives are asked to wait in waiting room during pts surgery. SO raised his voice and said What, so your policy has changed in one week? Secondly: When Kyle JETT suggested that SO brings car round to [facility] exit when pt is in [facility], SO curtly replied She is all set. Not understanding the reponse, Kyle JETT asked him what he meant. SO said She can walk over to the parking lot. Thirdly Kyle JETT was professional and courteous in all communication with and to pt and SO. Nursing Note:
[2023-10-26 07:57] VITALS: BP 117/58; PULSE 83; RESP 16; TEMP 36.5; O2SAT 93
--- NOTE | 2023-10-26 08:00 | W.ANESPOSTOP ---
Postoperative Evaluation Date, Time and Location Date Performed: 10/26/23 Time Performed: 08:00 Patient Location: Day Surgery Unit Vital Signs Most Recent Imported Vital Signs: Most Recent Vital Signs Temp Pulse Resp BP Pulse Ox 36.1 C L 79 16 132/92 H 97 10/26/23 06:29 10/26/23 06:29 10/26/23 06:29 10/26/23 06:29 10/26/23 06:29 Assessment Mental Status: Awake (Alert & Oriented to Patient Baseline) Airway and Respiratory Function: Patent airway with normal (patient baseline) respiratory exam Cardiovascular Function: Hemodynamically Stable Hydration Status: Adequately Hydrated Nausea & Vomiting: No Nausea or Vomiting Pain: Pt. Denies Any Pain Peripheral Nerve Block: Patient did not receive a nerve block
[2023-10-26 08:23] VITALS: BP 139/85; PULSE 86; RESP 16; TEMP 36.5; O2SAT 95
--- NOTE | 2023-10-26 09:24 | ROE_ITS ---
Date of service: 10/26/23 Time of Service: 07:30 Operative Note Operative Note DATE OF PROCEDURE: 10/26/23 PRE-OP DIAGNOSIS: Left Carpal Tunnel Syndrome POST-OP DIAGNOSIS: same PROCEDURE: Left Endoscopic Carpal Tunnel Release SURGEON: Trev Gusman ANESTHESIA TYPE: General:No Airway Refer to Anesthesia Record ESTIMATED BLOOD LOSS: 0 PATHOLOGY: none sent TOURNIQUET TIME: 7 COMPLICATIONS: None Patient was transported to: same day Patient's condition: stable Indications: I have seen Neeru in clinic for symptoms of carpal tunnel syndrome. The numbness, tingling, and pain limited function. Clinical exam findings with nerve conduction tests confirmed the diagnosis of carpal tunnel syndrome. Nonoperative measures such as bracing, time, activity modifications had been tried but disability and pain persisted. She had a successful carpal tunnel release on the right side. I discussed carpal tunnel release with the patient. I reviewed the risks of the procedure to include, but not limited to, bleeding, infection, pain, stiffness, incomplete release, damage to nerves or vessels, persistent numbness, recurrence. Despite these risks, the patient elected to proceed. Findings: There was tightened carpal tunnel. There was more fat within the carpal tunnel than expected, but this was resected. The carpal tunnel was dilated and released successfully with the endoscopic with increased space within the tunnel. The antebrachial fascia was released proximally freeing the median nerve at the wrist. Procedure Description: Neeru was greeted in the preoperative holding area where the correct side was identified and marked. The consent was reviewed with the patient and signed. The history and physical was updated. All questions were answered. She was taken back to the operating room. The patient was placed into the supine position on the operating room table with the left arm on an arm board. A nonsterile tourniquet was placed high onto the arm. All bony prominences were well padded. Prophylactic antibiotics in the form of Cefazolin were administered. The left arm was then prepped with Chloraprep and draped in a standard fashion with stockinette and extremity drape. A timeout to confirm correct identity, side and site, procedure, allergies, anesthesia, and medical concerns was performed. The surgical site was marked in the volar wrist creases in line with the radial border of the fourth ray. This area was anesthetized with approximately 6cc of 1% Lidocaine. The limb was then exsanguinated with an Esmarch. The skin was incised with a 15 blade, approximately 1cm. The skin only was cut and the deeper tissue was dissected bluntly with a tenotomy scissor, avoiding passing nerve and venous structures. The fascia was penetrated and opened bluntly. A two-prong skin hook was placed under this proximal fascial edge. A series of hamate finders were used to identify and dilate the carpal tunnel. Synovial elevator was used to free synovial attachments to the underside of the gould sverse carpal ligament. There was more fat in the carpal tunnel than expected and this obstructed visualization, so some of this was resected. Once cleared, my thumb was kept in the palm to kathy the distal extent of the carpal tunnel and correctly position the hand. The Microaire endoscope was inserted without difficulty and without resistance. Excellent visualization showed horizontally running fibers of the transverse carpal ligament (TCL). The distal extent of the TCL was visualized and the end of the scope palpated with the thumb. The blade was elevated and withdrawn from distal to proximal. The TCL was split into two flaps. The endoscope was reinserted to confirm complete release and any remnant ligament was incised. The scope was withdrawn and the proximal aspect of the carpal tunnel was grossly inspected and appeared release with the median nerve visible. The antebrachial fascia at the level of the wrist was then freed from the overlying skin and then the underlying median nerve with blunt dissection. This was transected longitudinally for about 3cm proximal to the wrist incision. The wound was then irrigated with easy flow of irrigant distally and proximally. The incision was closed with a single 4-0 Nylon suture. The wound was dressed with Xeroform, Gauze, Kerlix and Demetri. The tourniquet was deflated with the initial dressing and held with some pressure. Blood flow returned easily to all digits with capillary refill less than 2 seconds. The suture from the right hand was removed uneventfully. The patient tolerated the procedure well and was returned to the Same Day Surgery area in a stable condition suffering no known complication.
--- NOTE | 2023-10-26 09:29 | NUR.NOTE ---
10/26/23 Bella Reyes RN performed pt intake for L ECTR surgery today. Pt's spouse (Benigno Parrish) in room. Pt spouse unnecessarily verbally confrontational to Kyle JETT: Firstly, when SO informed that when pt is taken over to surgery, SO will be asked to leave the Day Surgery Unit but can wait in WR. SO reported that he was allowed to stay in the unit last week (10/19/23)when pt was having R ECTR surgery. Kyle JETT explained that relatives are asked to wait in waiting room during pts surgery. SO raised his voice and said What, so your policy has changed in one week?? Secondly: When Kyle JETT suggested that SO brings car round to [facility] exit when pt is in the OR (so pt does not have far to get to car ride home), SO curtly replied She is all set.? Not understanding the response, Kyle JETT asked him what he meant. SO said aggressively She can walk over to the parking lot.? Thirdly: When Kyle JETT informed the SO that she will call him back into [facility] for D/C instructions, SO told this RN that he wants to be back to dress pt. Phase 2: pt returned to [facility] following surgery, pt provided with food/drink. When pt comfortable and effects of anesthesia wearing off, Manuel JETT opened conversation with pt about life at home and if she felt safe with SO. Pt responded yes she felt safe at home. SO called back into room for d/c instructions, and then asked to leave to retrieve car. SO said that pt can walk to car. Kyle JETT said pt was still a little sleepy. SO replied :That's because she stayed up late last night. Kyle JETT politely reported that it was more likely to do with the anesthesia she had just had and pt would be safer if she could be wheeled straight to car. SO appeared reluctant to get car, but did so.Pt displayed some wooziness when walking to BR w/ Kyle JETT. Pt wheeled out of [facility] and transferred safely into waiting car outside [facility]. Kyle JETT professional and polite at all times to SO and pt. :
== END 2023-10-26 08:40 | disposition home or self-care (01) ==
PROVIDERS: PCP Family Medicine; Visit Provider Student in an Organized Health Care Education/Training Program
PROC: 01N54ZZ Release Median Nerve, Percutaneous Endoscopic Approach (ICD-10-PCS; CPT 29848; principal; 2023-10-26 07:30)
DX: G56.02 Carpal tunnel syndrome, left upper limb (principal); I10 Essential (primary) hypertension
CPT/HCPCS: 29848; 81025; J0690; J1100; J1885; J2001; J2004; J2405; J2704

== ENCOUNTER 2024-05-25 01:20 | Outpatient (CLI) | payer BC, SELFPAY ==
[2024-05-25 12:20] LABS: HCT 40.3 % (36.0-46.0); HGB 13.1 g/dL (11.2-15.7); MCH 32.1 pg (27.0-33.0); MCHC 32.5 % (32.0-36.0); MCV 99 fL (80-95); MPV 10.4 fL (8.0-11.0); Platelet Count 379 10^3/uL (130-400); RBC 4.08 10^6/uL (3.93-5.22); RDW 12.6 % (11.7-14.6); RDW-SD 45.3 fL; WBC 8.58 10^3/uL (4.4-10.8)
[2024-05-25 12:42] LABS: ALT 36 U/L (14-59); AST 19 U/L (15-37); Albumin 3.8 g/dL (3.4-5.0); Alkaline Phosphatase 61 U/L (46-116); Anion Gap 11.7 mmol/L (3-11); BUN 19 mg/dL (7-18); Bilirubin, Total 0.36 mg/dL (0.2-1.0); CO2 24.3 mmol/L (21.0-32.0); CREATININE 1.1 mg/dL (0.55-1.02); Calcium 9.4 mg/dL (8.5-10.1); Calculated LDL 118 mg/dL (<100); Chloride 102 mmol/L (98-107); Cholesterol 212 mg/dL (<200); Estimated GFR 63.54 (mL/min/1.73m2); Glucose 105 mg/dL (74-106); HDL Cholesterol 42 mg/dL (40-60); Potassium 4.3 mmol/L (3.5-5.1); Sodium 138 mmol/L (136-145); TSH (W/Ref FT4) 2.35 uIU/mL (0.36-3.74); Total Protein 7.1 g/dL (6.4-8.2); Triglyceride 262 mg/dL (<150)
== END 2024-05-25 01:21 | disposition home or self-care (01) ==
LOC: LOS 01:20
PROVIDERS: PCP Family Medicine; Visit Provider Family Medicine
DX: I10 Essential (primary) hypertension (principal); Z00.00 Encounter for general adult medical examination without abnormal findings; E03.9 Hypothyroidism, unspecified
CPT/HCPCS: 36415; 80053; 80061; 85027; 84443

== ENCOUNTER 2024-06-01 01:29 | Outpatient (CLI) | payer BC, SELFPAY ==
[2024-06-01 14:12] LABS: Folate 18.3 ng/mL (8.6-20.0); Vitamin B12 442 pg/mL (193-986)
== END 2024-06-01 01:30 | disposition home or self-care (01) ==
LOC: LOS 01:29
PROVIDERS: PCP Family Medicine; Visit Provider Family Medicine
DX: R71.8 Other abnormality of red blood cells (principal)
CPT/HCPCS: 36415; 82607; 82746

== ENCOUNTER 2024-06-07 16:35 | Outpatient (REF) | payer BC, SELFPAY ==
--- NOTE | 2024-06-07 13:00 | PAPFT_PTH ---
PATIENT: Neeru Parrish LOC: PATTI U#:[id number] AGE/SX: 44/F ROOM: RE06/07/[address]: Nani Marin MD, DC : 1980 BED: DIS: 06/07/2024 SPEC #: [id number] RECD: 06/08/24 12:36 STATUS: CHELO REQ #: [id number] IVETH: 06/07/24 13:[address]: Nani Marin DEPT: [facility] Cytology RECD BY: Aretha Murray Tissues: 1 - CX/ENDOCX FOR PAP SMEARS Procedures: PAP THIN PREP/UVM Screening HPV DNA PROBE Comments: [id number] (HPV 16 & 18/45)
== END 2024-06-07 16:36 | disposition home or self-care (01) ==
LOC: LBN 16:35
PROVIDERS: PCP Family Medicine; Visit Provider Family Medicine
DX: Z12.39 Encounter for other screening for malignant neoplasm of breast (principal); Z11.59 Encounter for screening for other viral diseases; Z00.00 Encounter for general adult medical examination without abnormal findings
CPT/HCPCS: 88142; 87624

== ENCOUNTER 2024-06-20 01:06 | Outpatient (CLI) | payer BC, SELFPAY ==
--- NOTE | 2024-06-20 06:30 | DI.MAMMO_ITS ---
Exam(s) MAMMO SCREENING EXAM: MAMMO SCREENING CLINICAL HISTORY: screening,z12.39 TECHNIQUE: Mammograms were interpreted according to the usual protocol including computer analysis w [employer] CAD system, tomosynthesis and C-view imaging. COMPARISON: 2015 and 2021 FINDINGS: The breasts are composed of scattered fibroglandular densities, Breast Density category B. No suspicious masses or suspicious microcalcifications are seen. No skin thickening or abnormal axillary lymph nodes are seen. There has been no significant change from prior exams. IMPRESSION: BI-RADS Category 1, Negative mammogram Yearly screening mammography is recommended. Breast Density - Category B, scattered fibroglandular densities. A negative radiographic report should not delay biopsy if a dominant or clinically suspicious mass is present. Up to ten percent of cancers are not identified on mammography. A negative report may reinforce clinical impression. Adenosis and dense breasts may obscure an underlying neoplasm. False positive reports average 6 to 10%. Patient will receive a letter notifying them of these results.
== END 2024-06-20 01:26 ==
LOC: DI 01:06
PROVIDERS: PCP Family Medicine; Visit Provider Family Medicine
DX: Z12.31 Encounter for screening mammogram for malignant neoplasm of breast (principal)
CPT/HCPCS: 77063; 77067

== ENCOUNTER 2025-08-27 01:28 | Outpatient (CLI) | payer BC, SELFPAY ==
[2025-08-27 13:12] LABS: ALT 32 U/L (10-49); AST 24 U/L (<34); Albumin 4.4 g/dL (3.2-5.0); Alkaline Phosphatase 59 U/L (46-116); Anion Gap 7.4 mmol/L (3-11); BUN 12 mg/dL (9-23); Bilirubin, Total 0.3 mg/dL (0.2-1.2); CO2 28.6 mmol/L (20.0-31.0); Calcium 9.6 mg/dL (8.3-10.6); Chloride 103 mmol/L (98-107); Glucose 82 mg/dL (74-106); Potassium 4.4 mmol/L (3.5-5.1); Sodium 139 mmol/L (136-145); Total Protein 7.2 g/dL (5.7-8.2)
== END 2025-08-27 01:29 | disposition home or self-care (01) ==
LOC: LBO 01:28
PROVIDERS: PCP Family Medicine; Visit Provider Family Medicine
DX: I10 Essential (primary) hypertension (principal)
CPT/HCPCS: 36415; 80053